=== PATIENT | male | born 1930 | race African-American/Black ===

== ENCOUNTER 2020-05-02 18:19 | Inpatient (IN) | payer MEDICARE, OTHER ==
[~2020-05-02 18:19] MED LIST: Iopamidol-370 76% 500 ML 1 ML ONE
[2020-05-02] MEDS ORDERED: Acetaminophen 500 MG TAB ONE (19:09)
[2020-05-02] MEDS ORDERED: Morphine 4 MG/ML VIAL ONE ×2 (19:09→21:13)
[2020-05-02] MEDS ORDERED: Ondansetron PF 4 MG/2 ML Vial ONE (19:17)
[2020-05-02] MEDS ORDERED: Cefepime 2 GM VIAL ONE (19:30)
[2020-05-02 19:35] LABS: #Basophils 0.1 thou/uL (0.0-0.2); #Eosinphils 0.3 thou/uL (0.0-0.7); #Lymphocytes 2.2 thou/uL (1.20-3.40); #Neutrophils 9.2 thou/uL (1.40-6.50); %Basophils 0.7 % (0.0-1.0); %Eosinophils 2.2 % (0.0-10.0); %Lymphocytes 17.3 % (21.0-51.0); %Monocytes 7.9 % (0.0-10.0); %Neutrophils 71.8 % (42.0-75.0); Hemoglobin 13.2 g/dL (12.0-16.0); Mean Corpuscular HGB CONC 32.4 g/dL (32.0-36.0); Mean Corpuscular Volume 89.5 fL (78.0-98.0); Mean Platelet Volume 8.2 fL (7.4-10.4); Platelet Count 332 thou/uL (130-400); RBC Distribution Width 13.8 % (11.5-14.5); Red Blood Cell (RBC) Count 4.56 mill/uL (4.20-5.40); White Blood Cell (WBC) Count 12.8 thou/uL (4.8-10.8)
[2020-05-02 19:58] LABS: Bacteria/HPF 4+ HPF (None Seen); Bilirubin Negative (Negative); Blood, Urine 3+ (Negative); Clarity Extra Turbid (Clear); Glucose, Urine (Dipstick) Normal (Negative); Ketone, Urine Negative (Negative); Leukocyte 500 Leu/uL (Negative); Nitrite Negative (Negative); Protein, Urine (Dipstick) 300 mg/dL (Neg-Trace); RBC/HPF Greater than 50 HPF (0-3); Specific Gravity, Urine 1.011 (1.002-1.036); Squamous Epithelial None Seen HPF (0-3); Urobilinogen Normal mg/dL (Less than 2); WBC/HPF Greater than 50 HPF (0-3); pH, Urine 8.5 (5.0-9.0)
[2020-05-02 20:10] LABS: ALT (SGPT) 16 U/L (8-55); AST (SGOT) 21 U/L (5-34); Albumin 3.9 g/dL (3.4-4.8); Alkaline Phosphatase 119 U/L (40-110); BUN (Urea Nitrogen) 28 mg/dL (9.8-20.1); Bilirubin, Total 0.3 mg/dL (0.2-1.2); Calc. Creatinine Clearance 0 mL/min (70-130); Calcium 9.4 mg/dL (7.8-10.44); Carbon Dioxide 22 mmol/L (23-31); Chloride 101 mmol/L (98-107); Estimated GFR-MDRD 36; Globulin 3.5 g/dL (2.4-3.5); Glucose 101 mg/dL (83-110); Lipase 32 U/L (8-78); Potassium 4.6 mmol/L (3.5-5.1); Protein, Total 7.4 g/dL (6.0-8.3); Sodium 138 mmol/L (136-145)
[2020-05-02 20:14] LABS: Anion Gap 20 mmol/L (10-20)
[2020-05-02] MEDS ORDERED: metroNIDAZOLE 500 MG/100 ML BAG ONE (21:09)
--- NOTE | 2020-05-02 21:14 | CT ---
CT ABDOMEN AND PELVIS WITH IV CONTRAST: 05/02/[address] registration has inadvertently listed this patient as a female. This is an 89-year-old male pa tient transferred from [place] with hematuria and abdominal pain. There are no comparison studies. FINDINGS: Images through the lung bases show chronic lung parenchymal changes. Stranding and honeycombing in th e lung bases with interstitial prominence. Lier, shows tiny peripheral gas densities in both right and left lobes. This is concerning for portal venous gas. There is no focal liver mass lesion. The spleen and pancreas are unremarkable. The portal vein is opacified and there is no evidence of proximal portal venous gas. The visualized s uperior mesenteric vein is opacified. With no evidence of superior mesenteric venous gas. Adrenal glands appear normal. Both kidneys show renal cystic lesions with parapelvic cysts. No definite hydronephrosis. The ureters are mildly dilated without evidence of calculus. The urinary bladder is distended and there is blad christine wall thickening. There is significant prostatic hypertrophy which encroaches on the floor of the bladder. There is a calcification seen in the dependent portion of the floor of the bladder in the m idline which measures approximately 1.1 cm. Prostatic neoplasm invading the floor of the bladder orlando ot be excluded. Small bowel loops appear normal caliber. No definite small bowel mural thickening or pneumatosis iden tified. Artifact degrades the exam. Colon is unremarkable. There is an ostomy in the left abdomen. Th ere is a rectal stump which is unremarkable. There is stool within this rectal stump which does invol ve portions of the sigmoid. Aorta is calcified but normal caliber. Review of the osseous structures reveal severe compression deformity involving the L3 vertebra. There is abnormal mottled density involving L5 vertebra and the sacrum involving S1 and S2 segments. There is increased density seen along both sides of the more inferior SI joint bilaterally which may repre sent prior cement placement. IMPRESSION: 1. Linear peripheral gas seen in both right and left lobes of the liver which is suspicious for portal venous gas. Etiology for the portal venous gas is not apparent as there is no definite gas se en in the superior mesenteric vein and I do not confirm ischemic bowel or mural thickening. Recommend GI consultation and close follow-up. 2. Prostatic hypertrophy which invades the floor of the bladder and there is associated bladder wall thickening. This appears to obstruct both ureterovesical junctions and appears to be producing m ild ureteral dilatation and mild bilateral hydro. Tiny calculus in the floor of the bladder dependent ly. 3. Mottled density involving the L5 vertebra and the sacrum. Lytic lesion not excluded. Severe c ompression of the L3 vertebra is noted. 4. Findings were discussed with Dr. Portillo in the ER. POS: HANS
[2020-05-02] MEDS ORDERED: Dextrose 5% in Water 1,000 ML IV PRN (22:22)
[2020-05-02] MEDS ORDERED: Dextrose 50% Abboject 50 ML SYRINGE SLOW IVP PRN (22:22)
--- NOTE | 2020-05-02 22:53 | PDOC.HHP ---
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 Patient was also complaining of pain in his penis. Patient is a poor historian and could not provide much history though oriented to person and place. Work-up in the emergency department revealed UA with turbid looking urine, numerous RBCs, WBC and bacteria suggesting hematuria and UTI. CT abdomen pelvis done reported p rostatic hypertrophy which invades the floor of the bladder, thickened bladder wall, and possible obstruction of the bilateral ureteral vesicular junction leading to mild hydroureter and hydronephrosis. It also reported multiple nonobstructing kidney stones. CT scan also reported some mottled lesions in the L5 vertebral and severe compression of L3. Patient was afebrile in the ED. I saw blood in his meatus when I examined him in the ED. He meets criteria for sepsis. He is admitted for further management. Hospitalist ROS - Review of Systems Other: Patient denied cough or shortness of breath or chest pain. Except as documented, all other systems reviewed and negative. Hospitalist History - Past Medical History Other Medical History: Chronic diastolic heart failure Diabetes mellitus type 2 Obesity Hyperlipidemia Essential hypertension Chronic kidney disease stage III GERD History of bowel obstruction Phimosis BPH History of TIA History of CVA Glaucoma - Past Surgical History Past Surgical History: reports: Other (Colostomy) - Family History Other Family History: Reviewed and no significant. - Social History Smoking Status: Unknown if ever smoked Alcohol: reports: None Drugs: reports: none Living Situation: [facility] - Exam General Appearance: awake alert Eye: PERRL, anicteric sclera ENT: normocephalic atraumatic, no oropharyngeal lesions, moist mucosa Neck: supple, symmetric, no JVD Heart: RRR, no murmur, no gallops Respiratory: CTAB, no wheezes, no rales, no ronchi, normal chest expansion Gastrointestinal: soft, non-tender, non-distended, normal bowel sounds Gastrointestinal - other findings: Colostomy left lower quadrant Extremities: no cyanosis, no clubbing, no edema Skin: normal turgor Neurological: cranial nerve grossly intact, no focal deficits, no new deficit Hospitalist Results - Labs Result Diagrams: 05/02/20 19:22 05/02/20 19:22 Lab results: WBC 12.8 thou/uL (4.8-10.8) H 05/02/20 19:22 Hgb 13.2 g/dL (12.0-16.0) 05/02/20 19:22 Hct 40.8 % (36.0-47.0) 05/02/20 19:22 MCV 89.5 fL (78.0-98.0) 05/02/20 19:22 Plt Count 332 thou/uL (130-400) 05/02/20 19:22 Neutrophils % 71.8 % (42.0-75.0) 05/02/20 19:22 Sodium 138 mmol/L (136-145) 05/02/20 19:22 Potassium 4.6 mmol/L (3.5-5.1) 05/02/20 19:22 Chloride 101 mmol/L (98-107) 05/02/20 19:22 Carbon Dioxide 22 mmol/L (23-31) L 05/02/20 19:22 BUN 28 mg/dL (9.8-20.1) H 05/02/20 19:22 Creatinine 1.65 mg/dL (0.6-1.1) H 05/02/20 19:22 Glucose 101 mg/dL (83-110) 05/02/20 19:22 Lactic Acid 2.5 mmol/L (0.5-2.2) H 05/02/20 19:22 Calcium 9.4 mg/dL (7.8-10.44) 05/02/20 19:22 Total Bilirubin 0.3 mg/dL (0.2-1.2) 05/02/20 19:22 AST 21 U/L (5-34) 05/02/20 19:22 ALT 16 U/L (8-55) 05/02/20 19:22 Alkaline Phosphatase 119 U/L (40-110) H 05/02/20 19:22 Troponin I 0.011 ng/mL (< 0.028) 05/02/20 19:22 Serum Total Protein 7.4 g/dL (6.0-8.3) 05/02/20 19:22 Albumin 3.9 g/dL (3.4-4.8) 05/02/20 19:22 Lipase 32 U/L (8-78) 05/02/20 19:22 Urine Ketones Negative mg/dL (Negative) 05/02/20 19:32 Urine Blood 3+ (Negative) A 05/02/20 19:32 Urine Nitrite Negative (Negative) 05/02/20 19:32 Ur Leukocyte Esterase 500 Divine/uL (Negative) A 05/02/20 19:32 Urine RBC Greater than 50 HPF (0-3) A 05/02/20 19:32 Urine WBC Greater than 50 HPF (0-3) A 05/02/20 19:32 Ur Squamous Epith Cells None Seen HPF (0-3) 05/02/20 19:32 Urine Bacteria 4+ HPF (None Seen) A 05/02/20 19:32 Hospitalist H&P A/P - Problem (1) Sepsis Code(s): A41.9 - SEPSIS, UNSPECIFIED ORGANISM Status: Acute Assessment and Plan: Likely secondary to UTI. (2) UTI (urinary tract infection) Status: Acute (3) Hematuria Code(s): R31.9 - HEMATURIA, UNSPECIFIED Status: Acute Assessment and Plan: Unknown etiology. Patient has nephrolithiasis and BPH. Hematuria is likely s econdary to BPH. (4) BPH (benign prostatic hyperplasia) Code(s): N40.0 - BENIGN PROSTATIC HYPERPLASIA WITHOUT LOWER URINRY TRACT SYMP Status: Acute Assessment and Plan: Extensive enlargement affecting the floor of the bladder. (5) Hydroureter Code(s): N13.4 - HYDROURETER Status: Acute (6) Hydronephrosis Code(s): N13.30 - UNSPECIFIED HYDRONEPHROSIS Status: Acute (7) Nephrolithiasis Status: Acute (8) Diabetes mellitus type 2 in obese Code(s): E11.69 - TYPE 2 DIABETES MELLITUS WITH OTHER SPECIFIED COMPLICATION; E66.9 - OBESITY, UNSPECIFIED Status: Acute (9) Hypertension Code(s): I10 - ESSENTIAL (PRIMARY) HYPERTENSION Status: Acute Assessment and Plan: Uncontrolled. (10) Chronic diastolic heart failure Code(s): I50.32 - CHRONIC DIASTOLIC (CONGESTIVE) HEART FAILURE Status: Acute - Plan Plan: Admit to the medical floor. Sepsis protocol initiated. Patient given a bolus of normal saline in the ED. Cautious IV fluid administration given history of chronic diastolic heart failure. Start IV cefepime and vancomycin. Follow urine culture and blood cultures. Urology consult requested. Avoid antiplatelet and anticoagulation. Insulin sliding scale for glucose management. Monitor for active bleeding. Periodic bladder scan to assess for urinary r etention. Aggressive blood pressure control. We will continue home antihypertensive. Add labetalol IV PRN for BP spikes.
[2020-05-02] MEDS: cefTRIAXone\\ROCEPHIN 2 GM in Sodium Chloride 0.9% 100 ML IVPB SCH (23:03)
[2020-05-02 23:09] LABS: Lactic Acid 1.5 mmol/L (0.5-2.2)
[2020-05-03] MEDS: Labetalol HCl 100 MG/20 ML VIAL SLOW IVP PRN (00:23)
[2020-05-03] MEDS: Vancomycin 1.5 GRAM/300 ML BAG 1.5 GM in Premix Bag 1 BAG IVPB SCH (02:00)
[2020-05-03] MEDS: Morphine 4 MG/ML VIAL SLOW IVP PRN (05:21)
[2020-05-03] MEDS: Carvedilol 6.25 MG TAB PO SCH ×2 (08:55→16:48)
[2020-05-03] MEDS ORDERED: Vancomycin HCl 1 GM in Sodium Chloride 0.9% 250 ML 300 ML IVPB SCH (09:00)
[2020-05-03] MEDS ORDERED: FLU VACC QS2020-21(65YR UP)/PF 240 MCG/0.7 ML SYRINGE IM ONE (09:00)
--- NOTE | 2020-05-03 11:29 | PDOC.HOSPP ---
- Subjective Encounter Date: 05/03/20 Encounter Time: 11:27 Subjective: Mr. Chan was seen today in follow-up of hematuria, and abdominal pain. He tells me his pain is about 80% better. Dr. Ladd is at bedside irrigating his bladder. - Objective Vital Signs & Weight: Vital Signs (12 hours) Temp Pulse Resp BP BP Pulse Ox 05/03/20 07:46 98.1 F 105 H 19 188/89 H 93 L 05/03/20 07:09 98.1 F 105 H 20 188/89 H 93 L 05/03/20 03:04 97.9 F 98 18 138/61 94 L 05/03/20 00:23 116 H 186/80 H Weight Weight 218 lb 3.2 oz I&O: 05/02/20 05/03/20 05/04/20 06:59 06:59 06:59 Intake Total 800 Balance 800 Result Diagrams: 05/02/20 19:22 05/02/20 19:22 Additional Labs: Accuchecks 05/03/20 05/03/20 05/02/20 11:05 06:02 23:08 POC Glucose 181 H 81 84 Hospitalist ROS - Medication Medications: Active Medications Generic Name Dose Route Start Last Admin Trade Name Freq PRN Reason Stop Dose Admin Carvedilol 6.25 mg 05/03/20 08:00 05/03/20 08:55 Carvedilol 6.25 Mg Tab PO 6.25 mg BID-WM BUCK Administration Ceftriaxone Sodium 2 gm/ 100 mls @ 200 mls/hr 05/02/20 23:00 05/02/20 23:03 Sodium Chloride IVPB 100 mls Q24HR BUCK Administration Vancomycin HCl 1.5 gm/ Device 300 mls @ 200 mls/hr 05/03/20 01:00 05/03/20 02:00 IVPB 300 mls 0100 BUCK Administration Labetalol HCl 10 mg 05/02/20 23:16 05/03/20 00:23 Labetalol Hcl 100 Mg/20 Ml Vial SLOW IVP 10 mg Q4H PRN Administration SBP Greater Than 180 Morphine Sulfate 4 mg 05/03/20 04:44 05/03/20 05:21 Morphine 4 Mg/Ml Vial SLOW IVP 4 mg Q3H PRN Administration Pain - Exam Eye: PERRL, anicteric sclera Heart: RRR, no murmur, no gallops, no rubs, normal peripheral pulses Respiratory: CTAB, no wheezes, no rales, no ronchi, normal chest expansion Gastrointestinal: soft, non-tender, normal bowel sounds Extremities: no cyanosis, no edema Hosp A/P (1) Hematuria Code(s): R31.9 - HEMATURIA, UNSPECIFIED Status: Acute (2) BPH (benign prostatic hyperplasia) Code(s): N40.0 - BENIGN PROSTATIC HYPERPLASIA WITHOUT LOWER URINRY TRACT SYMP Status: Acute (3) Chronic diastolic heart failure Code(s): I50.32 - CHRONIC DIASTOLIC (CONGESTIVE) HEART FAILURE Status: Acute (4) Diabetes mellitus type 2 in obese Code(s): E11.69 - TYPE 2 DIABETES MELLITUS WITH OTHER SPECIFIED COMPLICATION; E66.9 - OBESITY, UNSPECIFIED Status: Acute (5) Hypertension Code(s): I10 - ESSENTIAL (PRIMARY) HYPERTENSION Status: Acute (6) Nephrolithiasis Status: Acute (7) UTI (urinary tract infection) Status: Acute - Plan * Hematuria and UTI--Discussed with Dr. Ladd- this is likely due UTI- Urine culture has been sent. * Will continue Rocephin * DM- blood glucose is stable * Abnormal CT scan of abdomen- ? significance- await GI evaluation
[2020-05-03 12:10] LABS: SARS-CoV-2 MS2 Positive; SARS-CoV-2 N Gene Negative; SARS-CoV-2 S Gene Negative; SARS-CoV-2 by NAA Not Detected (NotDetected); SARS-CoV-2 orf1ab Negative
[2020-05-03] MEDS ORDERED: Sodium Chloride 0.9% (PF) 10 ML VIAL FS PRN (13:15)
[2020-05-03] MEDS ORDERED: Pantoprazole 40 MG VIAL IVP SCH (14:00)
--- NOTE | 2020-05-03 14:29 | CON ---
DATE OF CONSULTATION: 05/03/2020 REASON FOR CONSULTATION: Gross hematuria. HISTORY OF PRESENT ILLNESS: Mr. Chan is an 89-year-old gentleman who resides in [facility] in [place] and was brought to the emergency department for gross hematuria. Evaluation in the emergency room included laboratory testing and imaging with CT scan. The CT scan demonstrates bilateral renal stones and distended bladder, a tiny bladder stone, and enlarged prostate. His urinalysis demonstrated hematuria and bacteriuria. He was admitted for presumed bacterial urinary tract infection. His only complaint was some suprapubic pain. He denies any fevers and was not febrile on admission. PAST MEDICAL HISTORY: Type 2 diabetes mellitus, hyperlipidemia, chronic kidney disease stage 3, history of pseudo-obstruction of the bowel, phimosis, BPH, history of TIA, obesity, gastroesophageal reflux disease, history of glaucoma. 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 MEDICATIONS: Please see chart. ALLERGIES: NO KNOWN DRUG ALLERGIES. REVIEW OF SYSTEMS: Not completely reliable. PHYSICAL EXAMINATION: RESPIRATORY: Denies any shortness of breath or wheezing. CARDIOVASCULAR: Denies chest pain or palpitations. GASTROINTESTINAL: Denies any changes in stool output in colostomy. GENITOURINARY: Please see history of present illness. NEUROLOGIC: History of CVA. LABORATORY DATA: Urine testing demonstrates 4+ bacteria. Gross hematuria. Creatinine on admission 1.65. White blood cell count on admission 12.8, hemoglobin 13.2, hematocrit 40.8. CT scan, bilateral kidney stones, nonobstructive, mild dilation of the ureter, a distended bladder, markedly enlarged prostate, small bladder calculus. PROCEDURE: An 18-Tamazight coude Sparks catheter was placed. 1200 mL urine was drained. Sparks catheter was hand irrigated with sterile saline to remove several small clots until the urine was clear. IMPRESSION: Mr. Chan is an 89-year-old gentleman with longstanding urologic issues including bilateral nonobstructing kidney stones, recurrent urinary tract infections, and benign prostatic hypertrophy. He developed gross hematuria and was transferred to [place] for further evaluation and treatment. After discussion with his daughter, Tianna, he has a history of recurrent urinary tract infections. She states that she is unable to evaluate him recently since she cannot visit because of the COVID pandemic, but it seemed that he would have an infection almost on a monthly basis for the last year or so. She is questioning whether an antibiotic prophylaxis would be in his best interest. At the current time, I would recommend a Sparks catheter be left in place and culture-specific antibiotics be given. If he tolerates the catheter well, long-term indwelling Sparks catheter may help prevent symptomatic urinary tract infection, although definitely will not lower his risk of colonization. His infections are complicated as a result of his incomplete bladder emptying. An indwelling catheter would be helpful in that regard also. RECOMMENDATIONS: 1. Sparks to gravity. 2. Culture-specific antibiotic therapy. 3. Hand irrigate Sparks catheter as necessary 4. 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 Job ID: [id number] [facility]
--- NOTE | 2020-05-03 17:30 | CON ---
DATE OF CONSULTATION: CONSULTING PHYSICIAN: Antolin Rose MD. REASON FOR CONSULT: Portal venous gas. HISTORY OF PRESENT ILLNESS: Mr. Chan is 89-year-old gentleman. He was admitted here secondary to hematuria from the long term. Apparently, he has been staying in [place], [place] recently, at least in the last H and P in his old chart from December, he is from there. The ER notes, they do not indicate what brought him in or from where. The triage notes in the ER note that they brought him from the [facility] in [place] for blood in his urine for 2 days and a temperature of 99. The patient apparently had a CAT scan on arrival here, which has shown some chronic urolithiasis and bladder stones and changes of possible portal venous air. The patient is not able to give any additional history. He denies really any abdominal pain or nausea or vomiting, diarrhea, or blood in his stool. He states that he does have some discomfort in the suprapubic area. He has just been seen by the urologist outside sales consultant, Dr. 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 Also reviewing some of the records under another medical record number for the same patient, he has had C difficile in the past, I cannot confirm that on reviewing his records here at [facility]. PAST MEDICAL HISTORY: Chronic bladder infections, chronic urolithiasis, known bladder stone, chronic prostatism, phimosis, BPH, prior TIAs, prior sigmoid volvulus resected, reflux, chronic kidney disease stage 3, hypertension, hyperlipidemia, obesity, metabolic encephalopathy, chronic diastolic heart failure, type 2 diabetes, CVA and glaucoma. PAST SURGICAL HISTORY: Colostomy with sigmoid resection at [facility] a few years ago. FAMILY HISTORY: Unknown. Patient cannot inform on this. SOCIAL HISTORY: The chart indicates he lives at a long term in [place]. He does not smoke, drink, or use drugs. The patient cannot comment on this. PHYSICAL EXAMINATION: General: The patient is somnolent, but arousable. He denies pain. He is anicteric. HEENT: His mucous membranes are pink and moist. VITAL SIGNS: Pulse is 116 to 105, blood pressure is 157/72, temperature is 98.8, respirations 16. LUNGS: Clear. HEART: Regular rhythm and sinus tachycardia. ABDOMEN: Soft. The colostomy site appears pink and moist. There is brown stool in the colostomy bag. Bowel sounds are positive. There is no evidence of hernias, incisional or inguinal. EXTREMITIES: Reveal no clubbing, cyanosis, or edema. LABORATORY DATA: From last evening, white count was 12.8, hemoglobin is 13 and platelet count is 332. Sodium 138, potassium 4.6, BUN and creatinine 28 and 1.65. Liver function tests are normal. Alkaline phosphatase 118, albumin 3.9, protein is 7.4. Lactic acid was 2.5 at 1900 and 1.5 at 2200. Microbiology, blood cultures are pending. Unclear if urine has been sent. IMAGING: CT scan of abdomen and pelvis written by Dr. Cole last night, states that there may be some air in the portal venous system. There are no signs of intestinal thickening or abdominal inflammation or infection. There are nonobstructing calculi seen in both kidneys and apparently in the bladder. There was quite a bit of artifact on those studies apparently. There was no pneumatosis in the small intestine or colon. Rectal stump appears unremarkable. There is no air or gas in the superior mesenteric vein or signs of ischemic bowel. ASSESSMENT: 1. Admitted for hematuria with known bladder stone and recurrent bladder infections. 2. 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 Although this could be an ominous finding and is correlated with increased risk of usually from etiologies such as mesenteric ischemia or intraabdominal infections, there does not appear to be any of this present at this time. The etiology of portal venous pneumatosis is unclear. He has had sigmoid resections for volvulus in the past, which shows no signs of obstruction or perforation at this time, no signs of colitis. He has no pain or acidosis to suggest ischemia. It would be unlikely you would see this and associate with his bladder issues. It is unknown if this has been seen in the past. RECOMMENDATIONS: Observe closely. If the patient develops signs of acidosis, he would need a surgical consultation and reimaging, would repeat serial exams. No further evaluation recommended at this time. Job ID: [id number]
[2020-05-03] MEDS: cefTRIAXone\\ROCEPHIN 2 GM in Sodium Chloride 0.9% 100 ML IVPB SCH (23:28)
[2020-05-04] MEDS: Vancomycin 1.5 GRAM/300 ML BAG 1.5 GM in Premix Bag 1 BAG IVPB SCH (01:21)
[2020-05-04 04:30] LABS: #Eosinphils 0.1 thou/uL (0.0-0.7); #Lymphocytes 2.2 thou/uL (1.20-3.40); #Neutrophils 8.2 thou/uL (1.40-6.50); %Basophils 0.2 % (0.0-1.0); %Eosinophils 0.8 % (0.0-10.0); %Lymphocytes 18.8 % (21.0-51.0); %Neutrophils 71.2 % (42.0-75.0); Hemoglobin 11.2 g/dL (14.0-18.0); Mean Corpuscular HGB CONC 31.8 g/dL (32.0-36.0); Mean Corpuscular Hemoglobin 28.7 pg (27.0-31.0); Mean Corpuscular Volume 90.4 fL (78.0-98.0); Mean Platelet Volume 8.2 fL (7.4-10.4); Platelet Count 266 thou/uL (130-400); RBC Distribution Width 13.8 % (11.5-14.5); White Blood Cell (WBC) Count 11.5 thou/uL (4.8-10.8)
[2020-05-04 04:50] LABS: ALT (SGPT) 10 U/L (8-55); AST (SGOT) 15 U/L (5-34); Albumin 2.9 g/dL (3.4-4.8); Alkaline Phosphatase 76 U/L (40-110); Anion Gap 14 mmol/L (10-20); BUN (Urea Nitrogen) 32 mg/dL (8.4-25.7); Bilirubin, Total 0.3 mg/dL (0.2-1.2); Calc. Creatinine Clearance 40 mL/min (70-130); Calcium 8.5 mg/dL (7.8-10.44); Carbon Dioxide 24 mmol/L (23-31); Chloride 104 mmol/L (98-107); Estimated GFR-MDRD 44; Globulin 3.2 g/dL (2.4-3.5); Glucose 146 mg/dL (83-110); Protein, Total 6.1 g/dL (5.8-8.1); Sodium 138 mmol/L (136-145)
[2020-05-04] MEDS: Carvedilol 6.25 MG TAB PO SCH ×2 (07:58→17:23)
[2020-05-04] MEDS: Pantoprazole 40 MG VIAL IVP SCH (07:59)
[2020-05-04] MEDS: HumaLOG 300 UNITS/3 ML VIAL SC PRN ×2 (11:57→17:24)
--- NOTE | 2020-05-04 13:53 | PRG ---
DATE OF SERVICE: 05/04/2020 SUBJECTIVE: Mr. Chan is sitting up eating. He states his only complaint is having difficulty peeing. He denies any abdominal pain. He is eating lunch. OBJECTIVE: VITAL SIGNS: Temperature is 98, pulse 94 to 104, it was 116 when he came in, blood pressure 106/54. ABDOMEN: Soft, nontender. There is no palpable hepatosplenomegaly. EXTREMITIES: Reveal no edema. : He has a Sparks catheter in place. LABORATORY DATA: White count 11.5, hemoglobin 11.2, platelet count 266. Sodium 138, potassium 4, bicarb 24, BUN 32, and creatinine 1.78. Liver function tests normal. Albumin 2.9. Lactic acid was 1.5 on the day of admission after hydration. COVID test negative. Urine culture, Proteus. ASSESSMENT: 1. Issues with bladder outlet obstruction and urolithiasis, being addressed Urology with indwelling Sparks catheter and irrigation as needed. 2. Urinary tract infection, on antibiotics. 3. A CT scan showed questionable pneumatosis in portal venous system. No focus of intraabdominal infection was identified issues with the bladder. He has a benign abdomen. He shows no signs of acidosis or bowel necrosis at this time without any acute abdominal processes. This may have all been related to his bad urinary tract infection, but I could see no processes that could be addressed from a surgical standpoint in the abdomen abscess or infection in the abdomen. As he has a very benign abdomen, is eating well without complaints, we will sign off at this time. If I can be of any further assistance in the patient's care, please do not hesitate to contact me. Job ID: [id number]
--- NOTE | 2020-05-04 14:42 | PRG ---
DATE OF SERVICE: 05/04/2020 SUBJECTIVE: He is awake. He responds appropriately. He has no complaints. OBJECTIVE: VITAL SIGNS: Temperature 98.3, pulse 104, blood pressure 106/54, and 95% room air saturation. ABDOMEN: Soft, nontender. No palpable masses. GENITOURINARY: Sparks catheter is in place. Urine has a very minimal blood tinge to it. LABORATORY DATA: Urine culture positive for Proteus, sensitive to all antibiotics tested other than nitrofurantoin. IMPRESSION: Mr. Chan has asymptomatic stone disease and recurrent urinary tract infections with associated urinary retention. His hematuria can be accounted for by both the infection and his stones. He has cleared with hand irrigation and antibiotic therapy. He is clinically stable. I spoke with his daughter regarding long-term care. She was interested in antibiotic prophylaxis. I think this is a good idea based on her history that his infections are almost monthly. Leaving a Sparks catheter in place would also help in regard to preventing retention, but is less desirable if he can be managed with a prophylactic antibiotic. RECOMMENDATIONS: Antibiotic therapy for 1 week followed by long-term trimethoprim 100 mg p.o. daily as a suppressive antibiotic. Job ID: [id number]
--- NOTE | 2020-05-04 18:03 | PDOC.HOSPP ---
- Subjective Encounter Date: 05/04/20 Subjective: Pt has no complaints at this time. Hematuria has cleared. - Objective Vital Signs & Weight: Vital Signs (12 hours) Temp Pulse Resp BP BP Pulse Ox 05/04/20 17:23 133/97 H 05/04/20 15:54 98.8 F 102 H 19 133/97 H 95 05/04/20 11:07 98.3 F 104 H 18 106/54 L 95 05/04/20 08:00 97.7 F 94 18 126/60 96 05/04/20 07:58 126/60 Weight Admit Weight 218 lb 3.2 oz Weight 218 lb 3.2 oz I&O: 05/03/20 05/04/20 05/05/20 06:59 06:59 06:59 Intake Total 800 580 Output Total 2575 Balance 800 -1994 Result Diagrams: 05/04/20 04:04 05/04/20 04:04 Additional Labs: Accuchecks 05/04/20 05/04/20 05/04/20 17:13 11:27 06:16 POC Glucose 153 H 211 H 123 H 05/03/20 20:26 POC Glucose 144 H Hospitalist ROS - Review of Systems Constitutional: denies: fever, chills, sweats, weakness, malaise, other Eyes: denies: pain, vision change, conjunctivae inflammation, eyelid inflammation, redness, other ENT: denies: ear pain, ear discharge, nose pain, nose discharge, nose congestion, mouth pain, mouth swelling, throat pain, throat swelling, other Respiratory: denies: cough, dry, shortness of breath, hemoptysis, SOB with excertion, pleuritic pain, sputum, wheezing, other Cardiovascular: denies: chest pain, palpitations, orthopnea, paroxysmal noc. dyspnea, edema, light headedness, other Gastrointestinal: denies: nausea, vomiting, abdominal pain, diarrhea, constipation, melena, hematochezia, other Genitourinary: denies: dysuria, frequency, incontinence, hematuria, retention, other Musculoskeletal: denies: neck pain, shoulder pain, arm pain, back pain, hand pain, leg pain, foot pain, other Skin: denies: rash, lesions, jeffrey, bruising, other Neurological: denies: weakness, numbness, incoordination, change in speech, confusion, seizures, other - Medication Medications: Active Medications Generic Name Dose Route Start Last Admin Trade Name Freq PRN Reason Stop Dose Admin Carvedilol 6.25 mg 05/03/20 08:00 05/04/20 17:23 Carvedilol 6.25 Mg Tab PO 6.25 mg BID-WM BUCK Administration Ceftriaxone Sodium 2 gm/ 100 mls @ 200 mls/hr 05/02/20 23:00 05/03/20 23:28 Sodium Chloride IVPB 100 mls Q24HR BUCK Administration Vancomycin HCl 1.5 gm/ Device 300 mls @ 200 mls/hr 05/03/20 01:00 05/04/20 01:21 IVPB 300 mls 0100 BUCK Administration Insulin Human Lispro 0 units 05/02/20 22:22 05/04/20 17:24 Humalog 300 Units/3 Ml Vial SC 2 unit .MODERATE SLIDING SC PRN Administration Moderate Correctional Scale Labetalol HCl 10 mg 05/02/20 23:16 05/03/20 00:23 Labetalol Hcl 100 Mg/20 Ml Vial SLOW IVP 10 mg Q4H PRN Administration SBP Greater Than 180 Morphine Sulfate 4 mg 05/03/20 04:44 05/03/20 05:21 Morphine 4 Mg/Ml Vial SLOW IVP 4 mg Q3H PRN Administration Pain Pantoprazole Sodium 40 mg 05/04/20 09:00 05/04/20 07:59 Pantoprazole 40 Mg Vial IVP 40 mg DAILY BUCK Administration - Exam General Appearance: awake alert Eye: PERRL, anicteric sclera ENT: normocephalic atraumatic, no oropharyngeal lesions Neck: supple, symmetric, no JVD, no thyromegaly Heart: RRR, no murmur, no gallops, no rubs Respiratory: CTAB, no wheezes, no rales, no ronchi Gastrointestinal: soft, non-tender, non-distended, normal bowel sounds Gastrointestinal - other findings: Colonostomy bag is noted. Urena is noted Extremities: no cyanosis, no clubbing Skin: normal turgor, no lesions Neurological: cranial nerve grossly intact, no focal deficits Musculoskeletal: normal tone, normal strength, no muscle wasting Psychiatric: normal affect, normal behavior, A&O x 3 Hosp A/P (1) BPH (benign prostatic hyperplasia) Code(s): N40.0 - BENIGN PROSTATIC HYPERPLASIA WITHOUT LOWER URINRY TRACT SYMP Status: Acute Qualifiers: Lower urinary tract symptom detail: urinary retention Plan: Cont urena for now. Urology is on board. (2) Chronic diastolic heart failure Code(s): I50.32 - CHRONIC DIASTOLIC (CONGESTIVE) HEART FAILURE Status: Acute Plan: Stable, cont med mgt. (3) Diabetes mellitus type 2 in obese Code(s): E11.69 - TYPE 2 DIABETES MELLITUS WITH OTHER SPECIFIED COMPLICATION; E66.9 - OBESITY, UNSPECIFIED Status: Acute Plan: Controlled, cont current meds. Cover with SSI. (4) Hematuria Code(s): R31.9 - HEMATURIA, UNSPECIFIED Status: Acute Plan: Likely due to kidney stones. Now resolved. (5) Hydronephrosis Code(s): N13.30 - UNSPECIFIED HYDRONEPHROSIS Status: Acute Plan: Improving. F/u with Urology recs. (6) Hypertension Code(s): I10 - ESSENTIAL (PRIMARY) HYPERTENSION Status: Acute Qualifiers: Hypertension type: essential hypertension Qualified Code(s): I10 - Essential (primary) hypertension Plan: Stable. Cont current BP meds. (7) Nephrolithiasis Status: Acute Plan: No active intervention required now. (8) Sepsis Code(s): A41.9 - SEPSIS, UNSPECIFIED ORGANISM Status: Acute Plan: Cont current abx. (9) UTI (urinary tract infection) Status: Acute Qualifiers: Hematuria presence: with hematuria Plan: Urine Cx are positive for Proteus and Enterocccus. Will f/u with final sensitivity results. Cont current abx. (10) CLAIR (acute kidney injury) Code(s): N17.9 - ACUTE KIDNEY FAILURE, UNSPECIFIED Status: Acute Plan: Unsure of baseline. Will monitor Cr for now. - Plan DVT proph w/SCDs PPx: SCDs. CODE: Full. Dispo: Likely d/c tmr.
[2020-05-04 18:32] LABS: #Basophils 0.1 thou/uL (0.0-0.2); #Eosinphils 0.3 thou/uL (0.0-0.7); #Lymphocytes 2.7 thou/uL (1.20-3.40); #Monocytes 1.1 thou/uL (0.11-0.59); #Neutrophils 8.8 thou/uL (1.40-6.50); %Basophils 0.6 % (0.0-1.0); %Eosinophils 2.1 % (0.0-10.0); %Lymphocytes 20.5 % (21.0-51.0); %Monocytes 8.7 % (0.0-10.0); %Neutrophils 68.1 % (42.0-75.0); Hemoglobin 11.5 g/dL (14.0-18.0); Mean Corpuscular HGB CONC 32.1 g/dL (32.0-36.0); Mean Corpuscular Hemoglobin 28.8 pg (27.0-31.0); Mean Corpuscular Volume 89.9 fL (78.0-98.0); Platelet Count 312 thou/uL (130-400); RBC Distribution Width 13.8 % (11.5-14.5); Red Blood Cell (RBC) Count 4.01 mill/uL (4.70-6.10); White Blood Cell (WBC) Count 12.9 thou/uL (4.8-10.8)
--- NOTE | 2020-05-04 23:09 | PDOC.EVN ---
Event Note - Event Note Event Note: Patient had 2 5 beat runs of VT. Asymptomatic during them. K 4.0 this am, Magnesium level ordered at this time. Pt to continue to be monitored on Tele.
[2020-05-04] MEDS: Morphine 4 MG/ML VIAL SLOW IVP PRN (23:27)
[2020-05-04] MEDS: cefTRIAXone\\ROCEPHIN 2 GM in Sodium Chloride 0.9% 100 ML IVPB SCH (23:27)
[2020-05-05 00:49] LABS: Vancomycin, Trough 13.9 ug/mL
[2020-05-05] MEDS: Vancomycin 1.5 GRAM/300 ML BAG 1.5 GM in Premix Bag 1 BAG IVPB SCH (01:29)
[2020-05-05 05:27] LABS: Anion Gap 15 mmol/L (10-20); BUN (Urea Nitrogen) 28 mg/dL (8.4-25.7); Calc. Creatinine Clearance 49 mL/min (70-130); Calcium 8.3 mg/dL (7.8-10.44); Carbon Dioxide 22 mmol/L (23-31); Chloride 104 mmol/L (98-107); Estimated GFR-MDRD 55; Glucose 114 mg/dL (83-110); Potassium 4.1 mmol/L (3.5-5.1); Sodium 137 mmol/L (136-145)
[2020-05-05] MEDS: Carvedilol 6.25 MG TAB PO SCH ×2 (08:25→16:58)
[2020-05-05] MEDS: Pantoprazole 40 MG VIAL IVP SCH (08:25)
--- NOTE | 2020-05-05 09:38 | PDOC.HOSPP ---
- Subjective Encounter Date: 05/05/20 Encounter Time: 09:37 Subjective: alert, feels better. no chills, pain - Objective Vital Signs & Weight: Vital Signs (12 hours) Temp Pulse Resp BP BP Pulse Ox 05/05/20 08:25 144/67 H 05/05/20 03:21 98.8 F 86 18 116/56 L 95 05/04/20 23:34 98.6 F 93 18 162/73 H Weight Admit Weight 218 lb 3.2 oz Weight 218 lb 3.2 oz I&O: 05/04/20 05/05/20 05/06/20 06:59 06:59 06:59 Intake Total 580 2080 Output Total 2575 1900 Balance -1994 180 Result Diagrams: 05/04/20 18:22 05/05/20 04:17 Additional Labs: Accuchecks 05/05/20 05/04/20 05/04/20 06:18 20:27 17:13 POC Glucose 111 H 194 H 153 H 05/04/20 11:27 POC Glucose 211 H Hospitalist ROS - Medication Medications: Active Medications Generic Name Dose Route Start Last Admin Trade Name Freq PRN Reason Stop Dose Admin Carvedilol 6.25 mg 05/03/20 08:00 05/05/20 08:25 Carvedilol 6.25 Mg Tab PO 6.25 mg BID-WM BUCK Administration Insulin Human Lispro 0 units 05/02/20 22:22 05/04/20 17:24 Humalog 300 Units/3 Ml Vial SC 2 unit .MODERATE SLIDING SC PRN Administration Moderate Correctional Scale Labetalol HCl 10 mg 05/02/20 23:16 05/03/20 00:23 Labetalol Hcl 100 Mg/20 Ml Vial SLOW IVP 10 mg Q4H PRN Administration SBP Greater Than 180 Morphine Sulfate 4 mg 05/03/20 04:44 05/04/20 23:27 Morphine 4 Mg/Ml Vial SLOW IVP 4 mg Q3H PRN Administration Pain Pantoprazole Sodium 40 mg 05/04/20 09:00 05/05/20 08:25 Pantoprazole 40 Mg Vial IVP 40 mg DAILY BUCK Administration - Exam Neck: no JVD Heart: RRR, no murmur Respiratory: CTAB Gastrointestinal: soft, non-distended, normal bowel sounds Extremities: no edema Hosp A/P (1) NSVT (nonsustained ventricular tachycardia) Code(s): I47.2 - VENTRICULAR TACHYCARDIA Status: Acute (2) Chronic diastolic heart failure Code(s): I50.32 - CHRONIC DIASTOLIC (CONGESTIVE) HEART FAILURE Status: Chronic (3) Hydronephrosis Code(s): N13.30 - UNSPECIFIED HYDRONEPHROSIS Status: Acute Qualifiers: Hydronephrosis type: with ureteral calculous obstruction Qualified Code(s): N13.2 - Hydronephrosis with renal and ureteral calculous obstruction (4) Hypertension Code(s): I10 - ESSENTIAL (PRIMARY) HYPERTENSION Status: Acute Qualifiers: Hypertension type: essential hypertension Qualified Code(s): I10 - Essential (primary) hypertension (5) Sepsis Code(s): A41.9 - SEPSIS, UNSPECIFIED ORGANISM Status: Acute Qualifiers: Sepsis acute organ dysfunction status: without acute organ dysfunction (6) UTI (urinary tract infection) Status: Acute Qualifiers: Hematuria presence: with hematuria (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
[2020-05-05 15:24] VITALS: BMI 31.2
[2020-05-05] MEDS: HumaLOG 300 UNITS/3 ML VIAL SC PRN (17:05)
--- NOTE | 2020-05-06 01:52 | CON ---
DATE OF CONSULTATION: 05/05/2020 REASON FOR CONSULTATION: Nonsustained ventricular tachycardia. HISTORY OF PRESENT ILLNESS: Mr. Chan is an elderly gentleman, 89 years of age, admitted to the hospital with urosepsis. He has been on the monitor here. He had been found to have some nonsustained ventricular tachycardia. No chest pain or pressure. Echocardiogram shows normal left ventricular function. Current status is do not resuscitate. REVIEW OF SYSTEMS: CONSTITUTIONAL: No significant weight gain or loss. VISION: No changes. HEARING: No changes. PULMONARY: No cough or wheezing. GASTROINTESTINAL: No nausea, vomiting, or diarrhea. PHYSICAL EXAMINATION: VITAL SIGNS: Blood pressure 140/80, pulse 80 and it is regular. LUNGS: Clear. CARDIAC: Normal S1, normal S2. ABDOMEN: Soft and nontender. EXTREMITIES: Warm, dry. No clubbing. No cyanosis. There is no edema. Rhythm strips have shown nonsustained ventricular tachycardia. PERTINENT LABORATORY DATA: Creatinine is 1.46, which is better than it was at 1.78. Echocardiogram, ejection fraction is normal at 55% to 60%. ASSESSMENT: 1. Nonsustained ventricular tachycardia. 2. Urosepsis. 3. Hypertension. 4. Normal left ventricular function. PLAN: Increase carvedilol. No other recommendations at this time. Job ID: [id number]
[2020-05-06] MEDS: Carvedilol 6.25 MG TAB PO SCH (08:59)
[2020-05-06] MEDS: Pantoprazole 40 MG VIAL IVP SCH (09:00)
--- NOTE | 2020-05-06 11:50 | PDOC.HOSPP ---
- Subjective Encounter Date: 05/06/20 Encounter Time: 11:49 Subjective: oriented to person, no distress - Objective Vital Signs & Weight: Vital Signs (12 hours) Temp Resp BP BP Pulse Ox 05/06/20 08:59 157/70 H 05/06/20 04:00 98.0 F 16 162/77 H 96 Weight Admit Weight 218 lb 3.2 oz Weight 218 lb I&O: 05/05/20 05/06/20 05/07/20 06:59 06:59 06:59 Intake Total 2080 960 Output Total 1900 1900 Balance 180 -940 Result Diagrams: 05/04/20 18:22 05/05/20 04:17 Additional Labs: Accuchecks 05/06/20 05/06/20 05/05/20 11:23 05:52 20:14 POC Glucose 294 H 119 H 200 H 05/05/20 16:42 POC Glucose 205 H Hospitalist ROS - Medication Medications: Active Medications Generic Name Dose Route Start Last Admin Trade Name Freq PRN Reason Stop Dose Admin Carvedilol 12.5 mg 05/06/20 08:00 05/06/20 08:59 Carvedilol 6.25 Mg Tab PO 12.5 mg BID-WM BUCK Administration Ampicillin Sodium 1 gm/ 100 mls @ 200 mls/hr 05/05/20 12:00 05/06/20 05:45 Dextrose/Water IVPB 100 mls Q6HR BUCK Administration Insulin Human Lispro 0 units 05/02/20 22:22 05/05/20 17:05 Humalog 300 Units/3 Ml Vial SC 4 unit .MODERATE SLIDING SC PRN Administration Moderate Correctional Scale Labetalol HCl 10 mg 05/02/20 23:16 05/03/20 00:23 Labetalol Hcl 100 Mg/20 Ml Vial SLOW IVP 10 mg Q4H PRN Administration SBP Greater Than 180 Morphine Sulfate 4 mg 05/03/20 04:44 05/04/20 23:27 Morphine 4 Mg/Ml Vial SLOW IVP 4 mg Q3H PRN Administration Pain Pantoprazole Sodium 40 mg 05/04/20 09:00 05/06/20 09:00 Pantoprazole 40 Mg Vial IVP 40 mg DAILY BUCK Administration - Exam General Appearance: awake alert Neck: no JVD Heart: RRR, no murmur Respiratory: CTAB Gastrointestinal: soft, normal bowel sounds Extremities: 1+ LE edema Hosp A/P (1) NSVT (nonsustained ventricular tachycardia) Code(s): I47.2 - VENTRICULAR TACHYCARDIA Status: Acute (2) Chronic diastolic heart failure Code(s): I50.32 - CHRONIC DIASTOLIC (CONGESTIVE) HEART FAILURE Status: Chronic (3) Hydronephrosis Code(s): N13.30 - UNSPECIFIED HYDRONEPHROSIS Status: Acute Qualifiers: Hydronephrosis type: with ureteral calculous obstruction Qualified Code(s): N13.2 - Hydronephrosis with renal and ureteral calculous obstruction (4) Hypertension Code(s): I10 - ESSENTIAL (PRIMARY) HYPERTENSION Status: Acute Qualifiers: Hypertension type: essential hypertension Qualified Code(s): I10 - Essential (primary) hypertension (5) Sepsis Code(s): A41.9 - SEPSIS, UNSPECIFIED ORGANISM Status: Acute Qualifiers: Sepsis acute organ dysfunction status: without acute organ dysfunction (6) UTI (urinary tract infection) Status: Acute Qualifiers: Hematuria presence: with hematuria (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 Echo- Nl LVEF switch iv antibx to ampicillin, covers both proteus and enterococcus add am NPH for increasing glucose, cont accu/ss CBC, CMP in AM
[2020-05-06] MEDS: HumaLOG 300 UNITS/3 ML VIAL SC PRN (17:54)
[2020-05-06 20:20] VITALS: TEMP 97.9
[2020-05-06] MEDS ORDERED: Timolol 0.25% Ophth Soln 5 ml Bottle EA EYE SCH (21:00)
[2020-05-06] MEDS ORDERED: NPH, Human Insulin Isophane 300 UNIT/3 ML VIAL SC SCH (21:00)
[2020-05-06] MEDS ORDERED: Atorvastatin Calcium 40 MG TAB PO SCH (21:00)
[2020-05-06] MEDS: Labetalol HCl 100 MG/20 ML VIAL SLOW IVP PRN (21:13)
[2020-05-07 04:08] LABS: #Eosinphils 0.3 thou/uL (0.0-0.7); #Lymphocytes 2.4 thou/uL (1.20-3.40); #Neutrophils 4.1 thou/uL (1.40-6.50); %Basophils 0.3 % (0.0-1.0); %Eosinophils 3.9 % (0.0-10.0); %Lymphocytes 30.9 % (21.0-51.0); %Monocytes 12.5 % (0.0-10.0); %Neutrophils 52.4 % (42.0-75.0); Mean Corpuscular HGB CONC 32.2 g/dL (32.0-36.0); Mean Corpuscular Hemoglobin 28.7 pg (27.0-31.0); Mean Platelet Volume 7.8 fL (7.4-10.4); Platelet Count 295 thou/uL (130-400); RBC Distribution Width 13.6 % (11.5-14.5); Red Blood Cell (RBC) Count 3.83 mill/uL (4.70-6.10); White Blood Cell (WBC) Count 7.8 thou/uL (4.8-10.8)
[2020-05-07 04:34] LABS: ALT (SGPT) 15 U/L (8-55); AST (SGOT) 18 U/L (5-34); Alkaline Phosphatase 73 U/L (40-110); Anion Gap 13 mmol/L (10-20); BUN (Urea Nitrogen) 18 mg/dL (8.4-25.7); Bilirubin, Total 0.3 mg/dL (0.2-1.2); Calc. Creatinine Clearance 50 mL/min (70-130); Calcium 8.5 mg/dL (7.8-10.44); Carbon Dioxide 24 mmol/L (23-31); Chloride 104 mmol/L (98-107); Estimated GFR-MDRD 57; Globulin 3.3 g/dL (2.4-3.5); Glucose 121 mg/dL (83-110); Potassium 3.4 mmol/L (3.5-5.1); Protein, Total 6.3 g/dL (5.8-8.1); Sodium 138 mmol/L (136-145)
[2020-05-07] MEDS: Carvedilol 6.25 MG TAB PO SCH (09:04)
[2020-05-07 09:06] VITALS: BP 122/58
--- NOTE | 2020-05-07 14:06 | DIS ---
DATE OF ADMISSION: 05/02/2020 DATE OF DISCHARGE: 05/07/2020 PRIMARY CARE PROVIDER: Brenda Agarwal DO Discharged back to the [facility]. FINAL DIAGNOSES: Urinary tract infection with Proteus mirabilis and Enterococcus, most sensitive to ampicillin; hematuria related to UTI; acute kidney injury; diabetes mellitus type 2 causing chronic kidney disease stage 3; hypertension; nonsustained ventricular tachycardia; benign prostatic hypertrophy; urinary retention. The patient is discharged on 1. Ampicillin 500 mg p.o. q.i.d. 2. NPH insulin 25 units in the evening. 3. Coreg 12.5 mg twice a day. 4. Ferrous gluconate 324 mg p.o. at bedtime. 5. Aspirin 81 mg a day. 6. Atorvastatin 40 mg a day. 7. Bydureon Pen 2 mg subcu q.7 days. 8. Omeprazole 20 mg a day. 9. Magnesium oxide 400 mg a day and some p.r.n. ALLERGIES: NONE. CODE STATUS: DNAR. DIET: Diabetic. PENDING AT TIME OF DISCHARGE: Nothing. HOSPITAL COURSE: The patient was referred to the hospital for hematuria, was found to have a mildly elevated white count of 12.8, hemoglobin 13.2, platelet count 332,000. His creatinine was 1.65, BUN 28, sodium 138, potassium 4.6. His lactic acid was minimally elevated to 2.5, rapidly came down to 1.5. The cultures revealed polymicrobial UTI with Pseudomonas and Enterococcus. Fortunately, they were both sensitive to ampicillin, not Pseudomonas, Proteus mirabilis and Enterococcus. He was transitioned from broad-spectrum antibiotics to ampicillin 1 g q.6 hours. During his hospital stay, he was asymptomatic. His white cell count came down to normal 7.8 today. He is afebrile. His BUN and creatinine came down to 18 and 1.43. His blood sugar at the time of discharge was running 97. He was COVID negative. At the time of discharge, he is at his baseline mental status, alert, oriented to person only. Physical examination is unremarkable for cardiorespiratory problems. Consultations during hospital stay were obtained with Dr. Lavelle Ladd, Urology, who suggested continuing indwelling Sparks catheter as a way to prevent recurrent urinary tract infections. Seen by Dr. Moses Marie, Gastroenterology. The CT scan reveals some possibility of air in the portal system. He had no further recommendations other than to recommend a surgical consult if he developed acidosis. He did note his abdomen remained benign and no further workup was done. Also, had episodes of nonsustained ventricular tachycardia. He was seen by Dr. Aparna Daugherty, who suggested raising his Coreg 6.25 to 12.5, which was done. The patient continued to have occasional PVCs. Otherwise, he has had stable cardiovascular status. At this time, he is being discharged back to the [facility] for continuing care under Dr. Agarwal. He will return with a Sparks catheter, as discussed in Dr. Ladd's note. The duration of his treatment with the oral ampicillin will be up to Dr. Agarwal. Job ID: [id number]
== END 2020-05-07 13:15 | DRG 872 ==
LOC: ERS 18:19 → EDSEX 18:19 → 2NO 21:36
PROVIDERS: ADMIT Internal Medicine; ATTEND Internal Medicine
DX: A41.81 Sepsis due to Enterococcus (principal); N13.6 Pyonephrosis; I13.0 Hypertensive heart and chronic kidney disease with heart failure and stage 1 through stage 4 chronic kidney disease, or unspecified chronic kidney disease; N17.9 Acute kidney failure, unspecified; I50.32 Chronic diastolic (congestive) heart failure; I47.2 Ventricular tachycardia; Z20.828 Contact with and (suspected) exposure to other viral communicable diseases; Z66 Do not resuscitate; A41.89 Other specified sepsis; A41.52 Sepsis due to Pseudomonas; E78.5 Hyperlipidemia, unspecified; E11.22 Type 2 diabetes mellitus with diabetic chronic kidney disease; K21.9 Gastro-esophageal reflux disease without esophagitis; M19.90 Unspecified osteoarthritis, unspecified site; H40.9 Unspecified glaucoma; E66.9 Obesity, unspecified; N40.1 Benign prostatic hyperplasia with lower urinary tract symptoms; R33.8 Other retention of urine; K66.8 Other specified disorders of peritoneum; N47.1 Phimosis; N18.30 Chronic kidney disease, stage 3 unspecified; Z79.899 Other long term (current) drug therapy; Z79.4 Long term (current) use of insulin; Z86.73 Personal history of transient ischemic attack (TIA), and cerebral infarction without residual deficits; Z93.3 Colostomy status; Z68.30 Body mass index [BMI] 30.0-30.9, adult
CPT/HCPCS: 36415; 36416; 36600; 51701; 74177; 80048; 80053; 80202; 81001; 81003; 81015; 83605; 83690; 83735; 84484; 85025; 87040; 87077; 87086; 87186; 87635; 93306; 96365; 96367; 96375; 96376; C9113; C9803; J0290; J0692; J0696; J1815; J2270; J2405; J3370; J3490; J7070; Q9967; U0003

== ENCOUNTER 2021-07-25 16:39 | Emergency (ER) | payer MEDICARE, OTHER ==
[2021-07-25 17:25] LABS: #Basophils 0.1 thou/uL (0.0-0.2); #Eosinphils 0.3 thou/uL (0.0-0.7); #Lymphocytes 2.2 thou/uL (1.20-3.40); #Monocytes 0.7 thou/uL (0.11-0.59); #Neutrophils 5.2 thou/uL (1.40-6.50); %Basophils 0.7 % (0.0-1.0); %Eosinophils 3.1 % (0.0-10.0); %Lymphocytes 26.1 % (21.0-51.0); %Monocytes 8.4 % (0.0-10.0); %Neutrophils 61.8 % (42.0-75.0); Hemoglobin 13.1 g/dL (14.0-18.0); Mean Corpuscular HGB CONC 32.6 g/dL (32.0-36.0); Mean Corpuscular Hemoglobin 30.8 pg (27.0-31.0); Mean Corpuscular Volume 94.5 fL (78.0-98.0); Mean Platelet Volume 8.2 fL (7.4-10.4); Platelet Count 289 thou/uL (130-400); RBC Distribution Width 14.2 % (11.5-14.5); Red Blood Cell (RBC) Count 4.26 mill/uL (4.70-6.10); White Blood Cell (WBC) Count 8.5 thou/uL (4.8-10.8)
[2021-07-25 17:44] LABS: ALT (SGPT) 23 U/L (8-55); AST (SGOT) 22 U/L (5-34); Albumin 3.6 g/dL (3.4-4.8); Alkaline Phosphatase 110 U/L (40-110); Anion Gap 13 mmol/L (10-20); BUN (Urea Nitrogen) 31 mg/dL (8.4-25.7); Bilirubin, Total 0.3 mg/dL (0.2-1.2); Calc. Creatinine Clearance 0 mL/min (70-130); Calcium 10.1 mg/dL (7.8-10.44); Carbon Dioxide 29 mmol/L (23-31); Chloride 101 mmol/L (98-107); Globulin 3.9 g/dL (2.4-3.5); Glucose 171 mg/dL (83-110); Potassium 4.9 mmol/L (3.5-5.1); Protein, Total 7.5 g/dL (5.8-8.1); Sodium 138 mmol/L (136-145)
[2021-07-25 17:47] LABS: Clarity Cloudy (Clear); Specific Gravity, Urine 1.018 (1.002-1.036)
[2021-07-25 17:48] LABS: Leukocyte Moderate (Negative); Nitrite Negative (Negative)
[2021-07-25 17:49] LABS: Bilirubin Negative (Negative); Blood, Urine Negative (Negative); Glucose, Urine (Dipstick) Negative (Negative); Ketone, Urine Negative (Negative); Protein, Urine (Dipstick) 100 mg/dL (Neg-Trace); Urobilinogen 0.2 mg/dL (Less than 2)
[2021-07-25 17:50] LABS: Bacteria/HPF 4+ HPF (None Seen); RBC/HPF 0-3 HPF (0-3); Squamous Epithelial None Seen HPF (0-3)
[2021-07-25 17:51] LABS: Triple Phosphate Crystal Rare HPF (None Seen)
[2021-07-25] MEDS ORDERED: cefTRIAXone\\ROCEPHIN 1 GM VIAL ONE (18:07)
[2021-07-25 18:10] LABS: Lipase 22 U/L (8-78); Magnesium 1.8 mg/dL (1.6-2.6)
[2021-07-25 18:29] LABS: Analyzer IN Cardio ER; Base Excess 5.4 mEq/L (-2.0 to +3.0); Calcium, Ionized (venous) 1.08 mmol/L (1.16-1.32); Chloride (VBG) 101 mmol/L (98-106); Hemoglobin (Hb) 13.3 g/dL (12.6-17.4); Potassium (VBG) 4.86 mmol/L (3.70-5.30); Sodium 137.9 mmol/L (133-146); pH (venous) 7.43 (7.32-7.43)
[2021-07-25 18:30] LABS: Actual Bicarbonate (HCO3v) 31 mEq/L (22-28)
== END 2021-07-25 19:05 ==
LOC: ERS 16:39
DX: N39.0 Urinary tract infection, site not specified (principal); E78.5 Hyperlipidemia, unspecified; I13.0 Hypertensive heart and chronic kidney disease with heart failure and stage 1 through stage 4 chronic kidney disease, or unspecified chronic kidney disease; I50.9 Heart failure, unspecified; N18.30 Chronic kidney disease, stage 3 unspecified; E11.22 Type 2 diabetes mellitus with diabetic chronic kidney disease; K21.9 Gastro-esophageal reflux disease without esophagitis; M19.90 Unspecified osteoarthritis, unspecified site; Z79.82 Long term (current) use of aspirin; Z79.899 Other long term (current) drug therapy
CPT/HCPCS: 36415; 71045; 80053; 81003; 81015; 82805; 83605; 83690; 83735; 83880; 84484; 85025; 87040; 87077; 87086; 87149; 87186; 93005; 96365; J0696

== ENCOUNTER 2021-08-04 21:06 | Emergency (ER) | payer MEDICARE, OTHER ==
[2021-08-04 22:28] LABS: #Eosinphils 0.3 thou/uL (0.0-0.7); #Lymphocytes 2.2 thou/uL (1.20-3.40); #Monocytes 0.9 thou/uL (0.11-0.59); #Neutrophils 3.8 thou/uL (1.40-6.50); %Basophils 0.6 % (0.0-1.0); %Eosinophils 3.7 % (0.0-10.0); %Monocytes 12.6 % (0.0-10.0); %Neutrophils 53.1 % (42.0-75.0); Hemoglobin 12.3 g/dL (14.0-18.0); Mean Corpuscular HGB CONC 31.6 g/dL (32.0-36.0); Mean Corpuscular Hemoglobin 29.4 pg (27.0-31.0); Mean Corpuscular Volume 92.8 fL (78.0-98.0); Mean Platelet Volume 8.1 fL (7.4-10.4); Platelet Count 220 thou/uL (130-400); RBC Distribution Width 13.9 % (11.5-14.5); White Blood Cell (WBC) Count 7.2 thou/uL (4.8-10.8)
[2021-08-04 22:50] LABS: ALT (SGPT) 26 U/L (8-55); AST (SGOT) 28 U/L (5-34); Albumin 3.3 g/dL (3.4-4.8); Alkaline Phosphatase 95 U/L (40-110); Anion Gap 13 mmol/L (10-20); BUN (Urea Nitrogen) 27 mg/dL (8.4-25.7); Bilirubin, Total 0.3 mg/dL (0.2-1.2); Calc. Creatinine Clearance 0 mL/min (70-130); Calcium 9.5 mg/dL (7.8-10.44); Carbon Dioxide 27 mmol/L (23-31); Chloride 106 mmol/L (98-107); Globulin 3.1 g/dL (2.4-3.5); Glucose 177 mg/dL (83-110); Potassium 4.3 mmol/L (3.5-5.1); Protein, Total 6.4 g/dL (5.8-8.1); Sodium 142 mmol/L (136-145)
== END 2021-08-04 23:27 ==
LOC: ERS 21:06
DX: M79.672 Pain in left foot (principal); I13.0 Hypertensive heart and chronic kidney disease with heart failure and stage 1 through stage 4 chronic kidney disease, or unspecified chronic kidney disease; I50.9 Heart failure, unspecified; N18.30 Chronic kidney disease, stage 3 unspecified; K21.9 Gastro-esophageal reflux disease without esophagitis; E78.5 Hyperlipidemia, unspecified; E78.00 Pure hypercholesterolemia, unspecified; M19.90 Unspecified osteoarthritis, unspecified site; E11.9 Type 2 diabetes mellitus without complications
CPT/HCPCS: 36415; 80053; 83605; 85025; 86140